=== PATIENT | male | born 1995 | race Caucasian/White ===

== ENCOUNTER 2017-07-10 07:38 | Emergency (ER) | payer BC, OTHER ==
[2017-07-10 08:03] VITALS: BP 117/69
--- NOTE | 2017-07-10 08:14 | UC ---
Respiratory Complaint HPI - HPI Summary HPI Summary: c/o nasal/.post nasal discharge and cough for close to a months with malaise. States d/c is greenish, denies fever. States he is not taking any maintenance medicaitons - History of Current Complaint Chief Complaint: UCRespiratory Stated Complaint: RESP ISSUE Time Seen by Provider: 07/10/17 07:50 - Allergies/Home Medications Allergies/Adverse Reactions: Allergies Allergy/AdvReac Type Severity Reaction Status Date / Time No Known Allergies Allergy Verified 07/10/17 07:52 Home Medications: Home Medications [id number] [DAY TIME/NITE TIME COLD (Liquid)] 1 mis PO BID PRN 07/10/17 [History Confirmed 07/10/17] PMH/Surg Hx/FS Hx/Imm Hx Previously Healthy: Yes Psychological History: Bipolar Disorder - history of bipolar disoder - Surgical History Surgical History: Yes - Social History Alcohol Use: Occasionally Substance Use Type: None Smoking Status (MU): Never Smoked Tobacco Review of Systems Constitutional: Negative Skin: Other - bump in abdomen ENT: Sinus Congestion Respiratory: Cough Cardiovascular: Negative Genitourinary: Other - penile lesion All Other Systems Reviewed And Are Negative: Yes Physical Exam Triage Information Reviewed: Yes Appearance: Well-Appearing Vital Signs: Initial Vital Signs Temp 98.9 F 07/10/17 07:54 Pulse 70 07/10/17 07:54 Resp 16 07/10/17 07:54 BP 117/69 07/10/17 07:54 Pulse Ox 96 07/10/17 07:54 Vital Signs Reviewed: Yes Eye Exam: Normal ENT: Positive: Pharynx normal - tender on palpation frontal sinuses b/l, TMs normal Neck: Positive: Supple, Nontender, No Lymphadenopathy Respiratory Exam: Normal Cardiovascular Exam: Normal Skin Exam: Other - small papular lesion on midline abdomen approx 0.3cm diameter. Scar tissue shaft of penis Diagnostic Evaluation - Laboratory O2 Sat by Pulse Oximetry: 96 Respiratory Course/Dx - Course Course Of Treatment: Bilateral frontal sinusitis. Start antibiotics and complete course of treatment. Nasal toileting with normal saline, ingest fluids and keep hydration - Differential Dx/Diagnosis Provider Diagnoses: frontal sinusitis. Scar penis. Fibroma skin abdomen Discharge - Discharge Plan Condition: Stable Disposition: HOME Patient Education Materials: Rhinosinusitis (ED), Sinusitis (ED) Referrals: Audra Nagy MD [Medical Doctor] -
== END 2017-07-10 08:42 | disposition home or self-care (01) ==
LOC: UCEAST 07:38
DX: J32.1 Chronic frontal sinusitis (principal); D21.4 Benign neoplasm of connective and other soft tissue of abdomen; L90.5 Scar conditions and fibrosis of skin; F31.9 Bipolar disorder, unspecified
CPT/HCPCS: 99202; G0463